=== PATIENT | male | born 1980 | race American Indian/Alaskan Native ===

== ENCOUNTER 2016-10-04 19:49 | Emergency (ER) | payer OTHER ==
[2016-10-04 21:06] VITALS: BP 189/143
[2016-10-04] MEDS ORDERED: CATAPRES PO ONE (21:15)
[2016-10-04] MEDS ORDERED: CATAPRES ONE (21:17)
== END 2016-10-04 23:59 | disposition left against medical advice (07) ==
LOC: ED 19:49
DX: Z53.21 Procedure and treatment not carried out due to patient leaving prior to being seen by health care provider (principal)